=== PATIENT | female | born 1960 | race Caucasian/White ===

== ENCOUNTER 2021-03-07 14:09 | Day surgery (SDC) | payer MEDICARE, BC ==
[~2021-03-07] VITALS: Ht 167.6 cm; Wt 49.1 kg
[~2021-03-07 14:09] MED LIST: BACLOFEN10 MG PO; KLONOPIN2 MG PO; LIORESAL 1010 MG/TAB PO; NUEDEXTA 20 MG-1 CAP PO; TEGRETOL 1100 MG/TAB PO; TYLENOL 325MG325 MG PO; VITAMIN D1000 IU PO
[2021-03-07 15:08] VITALS: BP 131/69; PULSE 75; TEMP 98.4
[2021-03-07] MEDS ORDERED: TEGRETOL 2200 MG/TA1 PO (15:32)
[2021-03-07] MEDS ORDERED: IMURAN 50MG TAB50 MG PO (15:33)
[2021-03-07] MEDS ORDERED: LIORESAL20 MG PO (15:34)
[2021-03-07] MEDS ORDERED: D3-5050000 IU PO (15:34)
[2021-03-07 17:35] VITALS: BP 128/70; PULSE 75
--- NOTE | 2021-03-07 17:37 | NUR ---
The patient arrived back to [facility] from the operating room and appears to be alert and oriented at this time. The patient reports that she feels the urge to void and was instructed she would have this feeling until her body gets used to the catheter being in place. Post operative vital signs were started at this time. Dr. Chin came to speak with her and her regarind the outcome of the surgery. The patient has a 18Fr catheter that has been secured to her right leg and is draining yellow, clear urine at this time. Call light is within reach. Will continue to monitor the patient.
[2021-03-07 17:50] VITALS: BP 142/78; PULSE 87
--- NOTE | 2021-03-07 17:50 | NUR ---
The patient appears more alert and oriented and agrees to try some water. Catheter continues to drain without difficulty.
[2021-03-07 18:05] VITALS: BP 144/60; PULSE 86
--- NOTE | 2021-03-07 18:05 | NUR ---
The patient reports feeling cold and was given a warm blanket at this time. Catheter teaching was started with the patient's who will be caring for her catheter. He verbalized understanding and questions were answered at this time.
--- NOTE | 2021-03-07 18:15 | NUR ---
Discharge instructions were reviewed with the patient and her at this time. They both verbalized understanding and questions were answered at this time. The nurse demonstrated how to empty the patient's catheter with the watching and he verbalized understanding of the process. The patient's IV to her right forearm was removed and a pressure dressing was applied to the site. The nurse and the patient's assisted the patient to get dressed and she appeared to tolerate the activity well.
[2021-03-07 18:20] VITALS: BP 146/63; PULSE 79
--- NOTE | 2021-03-07 18:30 | NUR ---
The patient was escorted out via wheelchair to a private vehicle by GUADALUPE Sanches. The patient's belongings and discharge paperwork were sent with her. The patient's is present to drive her home.
== END 2021-03-07 18:30 | disposition home or self-care (01) ==
LOC: SDCO 14:09
DX: R33.9 Retention of urine, unspecified (principal); R35.0 Frequency of micturition; R39.11 Hesitancy of micturition; N31.9 Neuromuscular dysfunction of bladder, unspecified; G50.0 Trigeminal neuralgia; G35 Multiple sclerosis; Z20.822 Contact with and (suspected) exposure to COVID-19
CPT/HCPCS: J0690; J2250; J2704; J3010; J7120